=== PATIENT | female | born 2000 | race Caucasian/White ===

== ENCOUNTER 2021-05-21 20:32 | Emergency (ER) | payer SELFPAY ==
[2021-05-21 22:29] LABS: Bilirubin Small (Negative); Blood, Urine Trace (Negative); Clarity Clear (Clear); Glucose, Urine (Dipstick) Negative (Negative); Ketone, Urine 40 mg/dL (Negative); Leukocyte Trace (Negative); Nitrite Negative (Negative); Protein, Urine (Dipstick) 30 mg/dL (Neg-Trace); pH, Urine 5.5 (5.0-9.0)
[2021-05-21 22:31] LABS: Specific Gravity, Urine 1.032 (1.002-1.036)
[2021-05-21 22:32] LABS: Pregnancy Test - Urine (BHCG) Negative (Negative); Pregu Control Background? CLEAR/WHITE (CLR/WHITE); Pregu Control Bar Appear? YES (CONTROL BAR); Specific Gravity 1.032 (1.002-1.036)
[2021-05-21 22:37] LABS: Bacteria/HPF 1+ HPF (None Seen); Mucous/LPF 1+ LPF (<2+); RBC/HPF 0-3 HPF (0-3); Squamous Epithelial 0-3 HPF (0-3); WBC/HPF 0-3 HPF (0-3)
[2021-05-22 18:26] LABS: Chlam.trachomatis by PCR,Urine Not Detected (NotDetected)
== END 2021-05-22 00:08 | disposition home or self-care (01) ==
LOC: EDSEX 20:32 → BURERS 20:32
DX: N76.0 Acute vaginitis (principal)
CPT/HCPCS: 81003; 81015; 81025; 87491; 87591; 99283

== ENCOUNTER 2021-12-17 15:16 | Emergency (ER) | payer BC, SELFPAY ==
[2021-12-17] MEDS ORDERED: Metoclopramide HCl 10 MG/2 ML VIAL ONE (15:48)
[2021-12-17] MEDS ORDERED: diphenhydrAMINE 50 MG/ML VIAL ONE (15:48)
[2021-12-17] MEDS ORDERED: Acetaminophen 500 MG TAB ONE (15:48)
== END 2021-12-17 17:00 | disposition home or self-care (01) ==
LOC: BURERS 15:16
DX: R51.9 Headache, unspecified (principal)
CPT/HCPCS: 96361; 96365; 96375; J1200; J2765